=== PATIENT | male | born 1965 | race Caucasian/White ===

== ENCOUNTER 2019-11-12 04:34 | Emergency (ER) | payer OTHER ==
--- NOTE | 2019-11-12 04:46 | ED Physician Documentation ---
History of Present Illness - Stated complaint Stated Complaint: BACK PAIN - Chief complaint Chief Complaint: Back Pain - History obtained from History obtained from: Patient (Patient is a 53-year-old male presents with a chief complaint of 3 weeks of right sided Lower back pain That initially had been isolated to the right side of his lower back in the lumbar spine however today he noticed that the pain Started to radiate to the right groin and had an acute episode of pain tonight. Denies any history of AAA or testicular torsion.Complains of severe right flank cramping that radiates down to the right groin, he denies dysuria or hematuria denies any history of kidney stones. Reports he tried taking some Flexeril but has not helped with the symptomsToday. Over the last 3 weeks he had been taking Flexeril and ibuprofen which had helped with the symptoms but this morning had worsening right-sided lower back muscle spasms now with radiation around to the right groin and into the right testicle.) Review of Systems Constitutional: reports: Reviewed and negative Eyes: reports: Reviewed and negative Ears: reports: Reviewed and negative Nose: reports: Reviewed and negative Throat: reports: Reviewed and negative Cardiac: reports: Reviewed and negative Respiratory: reports: Reviewed and negative GI: reports: Reviewed and negative : reports: Reviewed and negative, Other (Right flank pain that radiates to the right groin.) Skin: reports: Reviewed and negative Musculoskeletal: reports: Reviewed and negative Neurologic: reports: Reviewed and negative Psychiatric: reports: Reviewed and negative Endocrine: reports: Reviewed and negative Immunocompromised: reports: Reviewed and negative PD PAST MEDICAL HISTORY - Present Medications Home Medications: Ambulatory Orders Medication Instructions Recorded Confirmed No Known Home Medications 11/12/19 11/12/19 - Allergies Allergies/Adverse Reactions: Allergies Allergy/AdvReac Type Severity Reaction Status Date / Time No Known Drug Allergies Allergy Verified 11/12/19 05:32 PD ED PE NORMAL - Vitals Vital signs reviewed: Yes - General General: Alert and oriented X 3, No acute distress, Well developed/nourished - HEENT HEENT: Atraumatic, PERRL, Moist mucous membranes, Pharynx benign, Dentition benign - Neck Neck: Supple, no meningeal sign, No adenopathy - Cardiac Cardiac: RRR, No murmur, Strong equal pulses - Respiratory Respiratory: No respiratory distress, Clear bilaterally - Abdomen Abdomen: Normal bowel sounds, Soft, Non tender, Non distended, No organomegaly - 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, Other (Testicles descended bilaterally circumcised penis no blood at the urethral meatus femoral pulses are 2+ and symmetric no inguinal lymphadenopathy normal cremaster) - Back Back: No spinal TTP, Other (Positive for right-sided CVA tenderness) - Derm Derm: Normal color, Warm and dry, No rash - Extremities Extremities: No deformity, No tenderness to palpate, Normal ROM s pain, No edema, No calf tenderness / cord - Neuro Neuro: Alert and oriented X 3, 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 # (Auto) 0.7 Eos # (Auto) 0.1 Baso # (Auto) 0.0 Absolute Nucleated RBC 0.00 Nucleated RBC % 0.0 Sodium 136 Potassium 4.3 Chloride 101 Carbon Dioxide 26 Anion Gap 9.0 BUN 26 H Creatinine 1.1 Estimated GFR (MDRD) 70 L Glucose 120 H Calcium 9.0 Total Bilirubin 0.7 AST 35 ALT 22 Alkaline Phosphatase 203 H Total Protein 7.8 Albumin 4.5 Globulin 3.3 Albumin/Globulin Ratio 1.4 Lipase 38 PD MEDICAL DECISION MAKING - ED course Complexity details: re-evaluated patient (06:17 Patient reexamined at this time is complaining of lumbar muscle spasms on exam he does have some right-sided carla mbar paraspinal muscle spasms there is no midline step-offs or deformities or tenderness palpation his CT scan of the abdomen and pelvis without contrast shows no signs of appendicitis or nephrolithiasis I still am unsure the etiology of his pain his pain is significantly improved at this time his abdomen soft there is no tenderness at McBurney's point negative Rovsing's negative psoas test testicles are descended with a normal creatine cremaster reflexThere is no testicular swelling no signs of testicular torsion.No appreciable inguinal hernias on exam.), considered differential (History and physical exam are concerning for possible nephrolithiasis will send urine work IV IV fluids IV analgesics and antiemetics and CT scan the abdomen pelvis without contrast and reevaluate.), other (Patient signed out at shift change to dr. estevez. patient reexamined at 07:03 and updated on plan, patient getting US. non toxic and non septic appearing. patient disposition pending ultrasound. ) Departure - Departure Clinical Impression: Right flank pain Back pain Qualifiers: Back pain location: back pain in unspecified location Chronicity: unspecified Back pain laterality: unspecified Qualified Code(s): M54.9 - Dorsalgia, unspecified
[2019-11-12] MEDS ORDERED: SODIUM CHLORIDE 0.9% 1,000 ML IV ONE (04:50)
[2019-11-12] MEDS ORDERED: KETOROLAC 30 MG/ML VIAL IVP STA (04:50)
[2019-11-12] MEDS ORDERED: ONDANSETRON 4 MG/2 ML VIAL IVP STA (04:50)
[2019-11-12] MEDS ORDERED: HYDROmorphone 2 MG/ML VIAL IVP STA (04:57)
[2019-11-12 05:18] LABS: BASOPHILS % (AUTO) 0.4 %; EOSINOPHILS # (AUTO) 0.1 10^3/uL (0.0-0.7); EOSINOPHILS % (AUTO) 1.1 %; HGB - HEMOGLOBIN 15.7 g/dL (14.0-18.0); LYMPHOCYTES # (AUTO) 1.8 10^3/uL (1.5-3.5); LYMPHOCYTES % (AUTO) 22.3 %; MEAN CORPUSCULAR HEMOGLOBIN 33.7 pg (27.0-31.0); MEAN CORPUSCULAR HGB CONC 33.8 g/dL (32.0-36.0); MEAN CORPUSCULAR VOLUME 99.6 fL (80.0-94.0); MEAN PLATELET VOLUME 10.3 fL (7.4-11.4); MONOCYTES # (AUTO) 0.7 10^3/uL (0.0-1.0); MONOCYTES % (AUTO) 9.2 %; NEUTROPHILS # (AUTO) 5.4 10^3/uL (1.5-6.6); NEUTROPHILS % (AUTO) 66.8 %; PLT - PLATELET COUNT 236 10^3/uL (130-450); RED BLOOD COUNT 4.66 10^6/uL (4.70-6.10); RED CELL DISTRIBUTION WIDTH 12.3 % (12.0-15.0); WHITE BLOOD COUNT 8.1 x10^3/uL (4.8-10.8)
[2019-11-12 05:30] LABS: ALBUMIN 4.5 g/dL (3.2-5.5); ALBUMIN/GLOBULIN RATIO 1.4 (1.0-2.2); BILIRUBIN,TOTAL 0.7 mg/dL (0.2-1.0); CREATININE 1.1 mg/dL (0.6-1.2); TOTAL PROTEIN 7.8 g/dL (6.7-8.2)
--- NOTE | 2019-11-12 05:45 | CT Report ---
Reason: right groin pain Procedure Date: 11/12/2019 Accession Number: [id number] / [id number] Procedure: CT - Abdomen/Pelvis WO CPT Code: Final Report FULL RESULT: EXAM: CT ABDOMEN AND PELVIS (CT KUB) EXAM DATE: 11/12/2019 05:23 AM. CLINICAL HISTORY: Right groin pain. Right lower abdominal and groin pain since 8:30 PM yesterday. COMPARISONS: None. TECHNIQUE: Routine axial helical CT imaging was performed through the abdomen and pelvis without IV contrast. Reconstructions: Coronal and sagittal. In accordance with CT protocol optimization, one or more of the following dose reduction techniques were utilized for this exam: automated exposure control, adjustment of mA and/or KV based on patient size, or use of iterative reconstructive technique. FINDINGS: Right Kidney/Ureter: No stones. No hydronephrosis or hydroureter. No definite renal mass within the confines of a non-contrast exam. Left Kidney/Ureter: No stones. No hydronephrosis or hydroureter. No definite renal mass within the confines of a non-contrast exam. Abdominal Solid Organs: Abdominal parenchymal organs are without significant abnormality within the confines of a noncontrast exam. Bowel: No evidence of bowel obstruction. The appendix could not be identified with certainty. However, there are no secondary signs of appendicitis demonstrated at this time. Lymph Nodes: No definite pathologic lymphadenopathy. Fluid: No significant ascites. Vasculature: Normal caliber aorta. Pelvis: No bladder stones. Visualized pelvic organs are without significant abnormality within the confines of a noncontrast exam. Bones: No definite suspicious bony lesions demonstrated. Mild to moderate multilevel degenerative change. Moderate to severe lower lumbar facet arthropathy. Lower Chest: No significant lung base consolidation or effusion. Mild to moderate coronary vascular calcifications. IMPRESSION: 1. No urinary tract stones or obstruction. 2. No bowel obstruction. The appendix could not be identified with certainty. However, there are no secondary signs of appendicitis demonstrated at this time. RADIA
[2019-11-12] MEDS ORDERED: diazePAM INJ 5 MG/ML SYRINGE IVP STA (06:17)
[2019-11-12 08:04] LABS: BILIRUBIN,URINE NEGATIVE (NEGATIVE); GLUCOSE, URINE (UA) NEGATIVE (NEGATIVE); KETONES,URINE (UA) NEGATIVE (NEGATIVE); LEUKOCYTE ESTERASE, URINE NEGATIVE (NEGATIVE); NITRITE,URINE NEGATIVE (NEGATIVE); OCCULT BLOOD,URINE NEGATIVE (NEGATIVE); PH,URINE 6.5 PH (5.0-7.5); PROTEIN,URINE NEGATIVE (NEGATIVE); UROBILINOGEN,URINE 0.2 (NORMAL) E.U./dL (NORMAL)
[2019-11-12 08:06] LABS: CLARITY,URINE CLEAR (CLEAR)
--- NOTE | 2019-11-12 08:17 | Ultrasound Report ---
Reason: right testicular pain Procedure Date: 11/12/2019 Accession Number: [id number] / [id number] Procedure: US - Testicle w/Doppler CPT Code: Final Report FULL RESULT: EXAM: SCROTAL ULTRASOUND EXAM DATE: 11/12/2019 07:38 AM. CLINICAL HISTORY: Right testicular pain. COMPARISON: None. TECHNIQUE: Real-time scanning was performed with static images obtained. Color-flow images were utilized. FINDINGS: Right: Testis: 4.7 x 2.3 x 3.0 cm. Normal size and echotexture. No mass or abnormal blood flow. There are a few punctate microcalcifications, not enough to qualify for testicular microlithiasis. Epididymis: 5.4 x 0.6 x 0.4 cm. Normal size and echotexture. No mass or abnormal blood flow. There is an epididymal head cyst or spermatocele measuring 0.4 x 0.4 x 0.3 cm. Hydrocele: None. Varicocele: None. Left: Testis: 4.3 x 2.1 x 2.6 cm. Normal size and echotexture. No mass or abnormal blood flow. There are a few punctate microcalcifications, not enough to qualify for testicular microlithiasis. Epididymis: 5.0 x 1.0 x 0.6 cm. Normal size and echotexture. No mass or abnormal blood flow. Hydrocele: A small left hydrocele is present. Varicocele: None. IMPRESSION: 1. No acute testicular abnormality identified. 2. There are a few bilateral punctate testicular calcifications, not enough to qualify as classic testicular microlithiasis. No intratesticular mass or other worrisome findings. In the absence of any other risk factors for testicular cancer (e.g., personal history of testicular cancer, a father or brother with testicular cancer, history of cryptorchidism or maldescent, testicular atrophy, or other risk factors), no further imaging or biochemical follow-up is necessary; all that is recommended is routine monthly testicular self examination. However, if the patient has risk factors for testicular cancer, referral to a urologist for evaluation and determination of an optimal follow-up strategy is recommended. Agatha Chan, Celi Thrasher, Chasidy Rajput 3. Small left hydrocele. RADIA
--- NOTE | 2019-11-12 08:44 | Ultrasound Report ---
Reason: RLQ abd pain Procedure Date: 11/12/2019 Accession Number: [id number] / [id number] Procedure: US - Abdomen Limited CPT Code: Final Report FULL RESULT: EXAM: Limited abdominal ultrasound EXAM DATE: 11/12/2019 07:00 AM. CLINICAL HISTORY: Right lower quadrant abdominal pain x2 weeks, intermittent, worse last night. COMPARISON: CT ABDOMEN/PELVIS W/O 11/12/2019 5:12 AM. TECHNIQUE: Real-time scanning was performed of the right lower quadrant with static images obtained. FINDINGS: APPENDIX: Not seen. COMPRESSION TOLERATED: Not reported. Patient is on pain medication. ASSOCIATED FINDINGS: Lymph Nodes Seen: None. Free Fluid/Complex Fluid Seen: None. Thickened Bowel Wall Seen: No. Other: None. IMPRESSION: The appendix was not visualized ultrasound. RADIA
[2019-11-12] MEDS ORDERED: ACETAMINOPHEN 500 MG TABLET PO STA (08:58)
[2019-11-12 09:02] VITALS: BP 141/84
--- NOTE | 2019-11-12 09:23 | ED Physician Documentation ---
ED Addendum - Addendum Addendum: 11/12/19 09:20 The patient had ultrasound of the genitalia with no acute findings. There is some microliths on both testicles suggestive of prior inflammatory conditions but no acute findings. He was given a copy of his ultrasound report for follow- up. The appendix could not be identified on ultrasound either (similar to CT scan (and again no secondary changes to suggest a local infectious process. Examination of his abdomen shows minimal tenderness in the lower abdomen without any percussion or rebound. There are no inguinal adenopathy no hernias felt. The testicle itself is nontender and without any swelling. There is a good cremaster reflex. At this point presume a musculoskeletal type pain with perhaps some so as spasms. The CT showed some mild arthritic changes at all levels in the spine but no acute abnormality. We can change out his anti-inflammatories and muscle relaxants and add an little stronger pain medicine if needed. He is to follow- up with his primary care regarding further evaluation and potential physical therapy. Disposition the patient is discharged home stable Diagnoses acute back and abdomen pain of uncertain etiology
== END 2019-11-12 09:42 | disposition home or self-care (01) ==
LOC: ED 04:34
DX: M54.5 Low back pain (principal); M62.830 Muscle spasm of back; R10.31 Right lower quadrant pain; N43.3 Hydrocele, unspecified
CPT/HCPCS: 36415; 74176; 76705; 76870; 80053; 81003; 83690; 84153; 85025; 93975; 96361; 96374; 96375; 99284; 99285; A9270; J1170; 81001; 87086

== ENCOUNTER 2024-03-11 20:19 | Emergency (ER) | payer OTHER ==
--- NOTE | 2024-03-11 20:27 | ED Physician Documentation ---
PD HPI UPPER EXT INJURY - Stated complaint Stated Complaint: LT THUMB LAC - Chief complaint Chief Complaint: Laceration - History obtained from History obtained from: Patient - Additonal information Additional information: HPI from patient. 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 Patient is right-hand dominant. Patient is up-to-date on tetanus immunization. Patient denies numbness, weakness. Review of Systems Musculoskeletal: reports: Extremity pain. denies: Joint pain Neurologic: denies: Focal weakness, Numbness PD PAST MEDICAL HISTORY - Past Medical History Past Medical History: Yes Cardiovascular: High cholesterol - Past Surgical History Past Surgical History: Yes Cardiovascular: Other - Present Medications Home Medications: Ambulatory Orders Medication Instructions Recorded Confirmed Hydrocodone/Acetaminophen 1 - 2 each PO Q6H PRN #14 tablet 11/12/19 [Hydrocodon-Acetaminophen 5-325] Naproxen 500 mg PO TID #30 tablet 11/12/19 Tizanidine HCl 4 mg PO TID PRN #25 capsule 11/12/19 dexAMETHasone [Decadron] 4 mg PO DAILY #5 tablet 11/12/19 diazePAM [Diazepam] 5 mg PO TID PRN #15 tablet 11/12/19 - Allergies Allergies/Adverse Reactions: Allergies Allergy/AdvReac Type Severity Reaction Status Date / Time No Known Drug Allergies Allergy Verified 03/11/24 20:22 - Social History Does the pt smoke?: No Smoking Status: Never smoker Does the pt drink ETOH?: Yes Does the pt have substance abuse?: No - Immunizations Immunizations are current?: Yes PD ED PE NORMAL - Vitals Vital signs reviewed: Yes - General General: Alert and oriented X 3, No acute distress, Well developed/nourished - Neuro Neuro: No motor deficit (FROM and strength (flexion/extension) left thumb (MCP and IP joints)), No sensory deficit (LTS intact left thumb at tip), Other (brisk capillary refill at left thumb tip) PD ED PE EXPANDED - Extremities ZA UE/Hands Visual: 1 - laceration (laceration of thumbnail from midline to lateral corner of proximal nail fold where the laceration extends to involve the skin in a "V"- shaped flap), tenderness (no bony tenderness; TTP of the nail/skin lac) Results - Vitals Vitals: Vital Signs - 24 hr 03/11/24 20:22 Temperature 36.8 C Heart Rate 68 Respiratory 16 Rate Blood Pressure 129/68 O2 Saturation 98 Oxygen O2 Source Room air Procedures - Laceration (location) Finger left Length in cm: 1.5 (length includes both skin and nail) Wound type: Stellate, Into subcut fat Neurovascular status: Sensory intact, Motor intact, Vascular intact Tendon involvement: Tendon intact Wound preparation: Wound explored Skin layer closure: Other (T strip laceration closure kit utilized for repair (using two T strips); Dermabond was then placed over the laceration (both the nail and skin segments)) Other: Patient tolerated well, No complications, Tetanus UTD PD Medical Decision Making - ED course Complexity details: considered differential, d/w patient ED course: the flap of skin involved is too small and it is too superficial at the tip (of the "V") to benefit from suture repair. Instead, the T strip laceration closure kit was utilized and reinforced with dermabond. Return precautions reviewed. Splint placed to minimize movement. There is no bony tenderness to suggest need for imaging studies, but within return precautions was discussion of return or contact PCP if he feels there is bony tenderness as the superficial pain associated with the laceration subsides. Departure - Departure Disposition: 01 Home, Self Care Clinical Impression: Laceration Condition: Good Instructions: ED Laceration Ext Skin Glue Comments: Your laceration was repaired with an adhesive strip mesh (designed for repair of these types of lacerations) reinforced with medical tissue adhesive ("glue"). F ollow up with your primary care provider for a wound check in 3-5 days. Discharge Date/Time: 03/11/24 21:10
[2024-03-11 20:30] VITALS: BP 129/68; O2SAT 98
[2024-03-11] MEDS: oxyCODONE/ACET 5/325 Prepack 4 PO STA (20:59)
== END 2024-03-11 21:10 | disposition home or self-care (01) ==
LOC: ED 20:19
DX: S61.012A Laceration without foreign body of left thumb without damage to nail, initial encounter (principal); W27.8XXA Contact with other nonpowered hand tool, initial encounter; E78.00 Pure hypercholesterolemia, unspecified
CPT/HCPCS: 12001; 99283